=== PATIENT | male | born 1960 | race Hispanic/Latino ===

== ENCOUNTER 2022-10-24 15:51 | Emergency (ER) | payer BC ==
--- OUTSIDE RECORDS SUMMARY | 2022-10-24 15:53 | XMS REPORT | Continuity of Care Document ---
:1960 Author Organization [facility] t Address [address] [place] [address] Care Team Providers Name Role Phone JUANITO POLLOCK Attending Clinician Unavailable JUANITO POLLOCK Admitting Clinician Unavailable Payers Payer Name Policy Type Policy Number Effective Date Expiration Date Foreign lucio 100030 [id number] 1958 00:00:00 Problems Condition Condition Condition Status Onset Resolution Last Treating Co mments Source Name Details Category Date Date Treatment Clinician Date Closed Closed Problem Active [facility] distal 00:00: Aiden gloria tibia and tibia and 00 l distal distal (LUF/LI fibula fibula V/SA) LEFT ANKLE LEFT ANKLE Problem Active [facility] PAIN AND PAIN AND 4[facility]13 [facility] SWELL[facility] SWELLING 00:00: Memori a 00 l (LUF/LI V/SA) LEFT PILON LEFT PILON Problem Active [facility] FRACTURE [facility]RACTURE [facility]13 [facility] 00:[facility]: Memoria 00 l (LUF/LI V/SA) Allergies, Adverse Reactions, Alerts Allergy Allergy Status Severity Reaction(s) Onset Inactive Treating Comm ents Source Name Type Date Date Clinician No Known DA Active Unknown [facility] Drug 4[facility]13 [facility] Allergie [facility]:00: Memoria s 00 l (LUF/LI V/SA) Social History Smoking Status Start Date Stop Date Source Current every day smoker [facility] (LUF/DUNIA/SA) Medications Ordered Filled Start Stop Current Ordering Indication Dosage Frequency Signature Comments Components Source Medication Medication Date Date Medication? Clinician (SIG) Name Name Acetaminoph Acetaminoph Yes pain 2tab 6xD [facility] en 325 MG / en 325 MG / L ukes Hydrocodone Hydrocodone M emoria Bitartrate Bitartrate l 5 MG Oral 5 MG Oral (LUF/ LI Tablet Tablet V/SA) Vital Signs Vital Name Observation Time Observation Value Comments Source Height 2018-07-04 10:14:00 165.1 CM Weight 2018-07-04 10:14:00 81.64 KG Body Temperature 2018-07-04 10:14:00 97.2 F [facility] (LUF/DUNIA/SA) Pulse Rate 2018-07-04 10:14:00 80 /min [facility] (LUF/DUNIA/SA) Respiratory Rate 2018-07-04 10:14:00 20 /min [facility] (F/DUNIA/SA) O2% BldC Oximetry 2018-07-04 10:14:00 100 % [facility] (LUF/DUNIA/SA) BP Systolic 2018-07-04 10:14:00 144 mm[Hg] [facility] (LUF/DUNIA/SA) BP Diastolic 2018-07-04 10:14:00 87 mm[Hg] [facility] (LUF/DUNIA/SA) Height 2018-07-04 10:14:00 65 in [facility] (LUF/DUNIA/SA) Weight Measured 2018-07-04 10:14:00 180 lbs [facility] (LUF/DUNIA/SA) BMI (Body Mass Index) 2018-07-04 10:14:00 29.9 kg/m2 [facility] (F/DUNIA/SA) Procedures This patient has no known procedures. Encounters Start End Encounter Admission Attending Care Care Encounter Source Date/Time Date/Time Type Type Clinicians Facility Department ID 2018-07-04 2018-07-04 PLEURISY Perry DIPAK POLLOCK EMD [id number] [facility] 09:57:00 15:20:00 JUANITO mahoney (LUF/LI V/SA) Results Test Description Test Time Test Comments Results Result Comments Source STAT LAB TROPONIN 2018-07-04 14:26:00 Test Item Value Reference Range Interpretation Comme nts Troponin-I (test code = 0.00 ng/ml 0.00-0.08 The 99th Percentile URL is 0.08 TROP) ng/mL for the Tito sanonott iStat Troponin I. The Joint [place] Society of Cardiology/[facility]mer [facility] College of Cardiology (ESC /ACC) and the National Academ y of Clinical Biochemistry [facility] of Laboratory Prac tices (NACB) recommends that the diagnosis of AMI includes th e presence of clinical histor y suggestive of Acute Coronary Syndrome (ACS) and a maximum concent ration of cardiac troponin exceed ing the 99th percentile of a normal reference population [upp er reference limit (URL)] on at le ast one occasion during the firs t 24 hours after the clinical event. ed [address] [place] [address] ANGIO CHEST W/ [id number] 12:26:44 er 14Procedure: CT ANGIO CHEST W/ CONTRASTOrder date: 07/04/2018 10:57 AMOrdering Provider: JUANITO Hainical Indication: Cough and chest painComparison: NoneTechnique: Using a multislice scanner, sequential axial imaging was obtained inthe thorax from the level of the thoracic inlet through the lung bases beforeand after intravenous contrast administration. The contrast bolus was timed toevaluate the pulmonary arteries for thrombus. 3-D MIP coronal and sagittalreformatted images were obtained.This exam was performed according to the our departmental dose-optimizationprogram which includes automated exposure control, adjustment of the mA and/orkV according to patient size and/or use of iterative reconstruction techniques.Findings:The central pulmonary arteries demonstrate normal contrast enhancement. Thesecond and third order branches demonstrate normal contrast enhancement. Thereare no filling defects to suggest pulmonary artery embolism.The thoracic aorta is of normal diameter. There is no evidence of aorticdissection or aneurysm.There is no supraclavicular or axillary lymphadenopathy.There is no mediastinal, hilar, or subcarinal lymphadenopathy.Patchy amorphous groundglass nodules seen withinthe subpleural upper lobesparticularly on image 28 on the right upper lobe, image 32 in the right upperlobe, as well as image 30 in the left upper lobe. There is also subpleuralnodularity seen within the left lung base. Findings are nonspecific and arefavored to represent infectious or inflammatory infiltrates. Potentiallymetastatic disease could have this appearance and short-term three-monthfollowup is recommended.Diffuse thoracic spondylosis without acute fracture or subluxation.IMPRESSION:1. No evidence of pulmonary artery embolus.2. No evidence of aortic dissection or aneurysm.3. Nonspecific bilateral upper lobe pulmonary nodules. These are favored to beinfectious or inflammatory in etiology,however are nonspecific and three-monthfollowup are recommended.This final report was electronicallysigned by Dr Mavis Parada MD 07/04/201812:20 PMDictated By: MAVIS PARADADate: 07/04/2018 12:20[facility] ORWELLXR CHEST AP/PA 1 [id number] 12:19:29er 14Procedure: XR CHEST AP/PA 1 VIEWOrder Date: 07/04/2018 10:57 AMOrdering Provider: JUANITO HainicalIndication: [id number]: Chest painComparison: 2015Findings:Lungs are clear. Heart size is within normal limits. No acute osseousabnormality.Impression:No acute pulmonary process.This final report was electronically signed by Dr Risa Sigala MD 07/04/201812:13 PMDictated By: MILI SIGALAKDate: 07/04/201812:13[facility] OF ORWELLHEPATIC FUNCTION PANEL (LIVER)2018-07-04 11:46:00 Test Item Value Reference Range Interpretation Comments T Protein (test code = TP) 7.3 gm/dl 6.4-8.2 Albumin (test code = ALB) 3.6 gm/dl 3.4-5.0 AST (SGOT) (test code = AST) 15 U/L 15-37 ALT (SGPT) (test code = ALT) 41 U/L 13-61 Alkaline Phos (test code = ALKP) 102 U/L 45-117 Total Bilirubin (test code = TBIL) 0.5 mg/dl 0.2-1.0 Direct Bilirubin (test code = <0.1 mg/dl 0.0-0.3 N DBIL) Indirect Bilirubin (test code = 0.5 mg/dl 0.0-1.1 IBIL) er [address] [place] [address] LAB [id number] 11:41:00 Test Item Value Reference Range Interpretation Comments Troponin-I (test 0.00 ng/ml 0.00-0.08 The 99th Pe rcentile URL is code = TROP) 0.08 ng/mL for the [place] iStat Troponin I. The Joint Society of Cardiology/Amer ican College of Card iology (ESC/ACC) and t National Academy of Clin ical Biochemistry [facility] of Laboratory Prac tices (NACB) recommen ds that the diagnosis of AM I includes the presence of clinical history suggest yaneth of Acute Coronary Syndrome (ACS) and a max imum concentration o f cardiac troponin exceed ing the 99th percentile of a normal referenc e population [upp er reference limit (URL)] on at least one oc casion during the firs t 24 hours after the clini komal event. er [address] [place] [address] AND [id number] 11:40:00 Test Item Value Reference Range Interpretation Comments Protime (test code 9.7 seconds 9.0-11.9 = PT) INR (test code = 1.0 0.9-1.1 INR results are intended INR) ONLY to monitor Oral Anticoagulant t herapy in stablized patie nts. The INR Therapeutic Range is 2.0 - 3.0 Patie nts with a mechanical he art, the INR Range is 2. 5 - 3.[address] [place] [address]-[id number] 11:40:00 Test Item Value Reference Range Interpretation Comments aPTT (test code = PTT) 28.9 seconds 23.0-33.[address] [place] [address] LAB [id number] [id number] 11:36:00 Test Item Value Reference Range Interpretation Comments Sodium (test code = NA) 138 mmol/l 138-146 Potassium (test code = K) 4.0 mmol/l 3.5-4.9 Chloride (test code = CL) 105 mmol/l 98-109 IONIZED CALCIUM (test code = ICA) 1.03 CO2 (test code = CO2) 24 mmol/l 24-29 Glucose (test code = GLU) 131 mg/dl 70-105 H BUN (test code = BUN) 10 mg/dl 6-17 Creatinine (test code = CREA) 0.9 mg/dl 0.6-1.[address] [place] [address] LAB CBC WITH AUTO [id number] 11:35:00 Test Item Value Reference Range Interpretation Comments WBC (test code = WBC) 5.88 10\S\3/ul 4.80-10.80 RBC (test code = RBC) 5.51 10\S\6/ul 4.70-6.10 Hemoglobin (test code = HGB) 16.4 gm/dl 14.0-18.0 Hematocrit (test code = HCT) 46.4 % 42.0-50.0 MCV (test code = MCV) 84.2 fL 80.0-94.0 MCH (test code = MCH) 29.8 pg 27.0-31.0 MCHC (test code = MCHC) 35.3 gm/dl 33.0-37.0 Platelet (test code = PLT) 190 10\S\3/ul 130-400 RDW (test code = RDWVC) 12.3 % 11.5-14.5 MPV (test code = MPV) 10.6 fL 7.4-10.4 A NE% (test code = NE) 60.2 % 42.0-75.0 LY% (test code = LY) 27.9 % 13.0-42.0 MO% (test code = MO) 9.4 % 4.0-14.0 EO% (test code = EO) 1.9 % 1.0-3.0 BA% (test code = BA) 0.3 % 1.0-3.0 L IG% (test code = IG%) 0.3 % 0.0-0.[address] [place] [address] Notes Date/Time Note Provider Source 2018-07-04 15:20:00-00:00 [facility] Discharge Instructions 2 (LUF/LI V/SA) Discharge Diagnosis pleurisy Important Information Consult your physician or re turn to the Emergency Department immediately if worse, if not better as expected, or if any problems arise. Follow Up Care Yes Important Information Please understand that you have received care on ly on an emergency basis. If your condition does not i mprove, you should call your personal physician for follow-up care. If you do not have a physician, you may call the referred physician listed. If you have questions about your care or these discharge instructions, you may call the Emergency Department. Please take your discharge paperwork with you to any follow-up appointments. Follow Up Care Patient To Schedule Follow-Up With: Primary Care Physician Activity Level As tolerated, unrestricted Diet Regular Patient Teaching Patient education provided
[2022-10-24 16:09] LABS: Absolute Lymphocytes (CBC) 1.5 K/uL (0.7-4.9); Hematocrit 45.8 % (39.6-49.0); Lymphocytes % 20.6 % (15.3-44.8); MCV 88.7 fL (80-100); MPV 8.7 fL (7.6-11.3); Platelets 200 thou/uL (152-406); RBC Red Blood Cell Count 5.16 M/uL (4.33-5.43)
[2022-10-24 16:24] LABS: Albumin 3.2 g/dL (3.4-5.0); Bilirubin Total 0.4 mg/dL (0.2-1.0); Potassium 3.7 mEq/L (3.5-5.1); Protein, Total 6.3 g/dL (6.4-8.2)
--- NOTE | 2022-10-24 16:55 | ER ---
[facility]'s Notes [facility] Name: Say Khan Age: 62 yrs Sex: Male : 1960 Arrival Date: 10/24/2022 Time: 15:51 Bed 2 Private MD: Diagnosis: Heat exhaustion, unspecified Presentation: 10/24 15:53 Chief complaint: EMS states: patient was in a car having sexual relations without the ko1 AC on, started getting light headed, having abdominal pain and dizzy, called EMS but stayed in the car until they arrived with no AC. Upon EMS arrival patient was tachycardic and dizzy. Coronavirus screen: At this time, the client does not indicate any symptoms associated with coronavirus-19. Ebola Screen: No symptoms or risks identified at this time. Initial Sepsis Screen: Does the patient meet any 2 criteria? No. Patient's initial sepsis screen is negative. Does the patient have a suspected source of infection? No. Patient's initial sepsis screen is negative. Risk Assessment: Do you want to hurt yourself or someone else? Patient reports no desire to harm self or others. Onset of symptoms was October 24, 2022. 15:53 Method Of Arrival: EMS: [facility] ko1 15:53 Acuity: HELGA 3 ko1 15:53 Care prior to arrival: IV initiated. 18 GA, in the left forearm. ko1 Triage Assessment: 15:55 General: Appears in no apparent distress. comfortable, Behavior is calm, cooperative, ko1 appropriate for age. Pain: Denies pain. Historical: - Allergies: 15:55 No Known Allergies; ko1 - Home Meds: 15:55 None [Active]; ko1 - PMHx: 15:55 None; ko1 - Immunization history:: Adult Immunizations unknown. - Social history:: Smoking status: Patient denies any tobacco usage or history of. Screenin:00 [facility] ED Fall Risk Assessment (Adult) History of falling in the last 3 months, ko1 including since admission No falls in past 3 months (0 pts) Confusion or Disorientation No (0 pts) Intoxicated or Sedated No (0 pts) Impaired Gait No (0 pts) Mobility Assist Device Used No (0 pt) Altered Elimination No (0 pt) Score/Fall Risk Level 0 - 2 = Low Risk Oriented to surroundings, Maintained a safe environment, Educated pt \T\ family on fall prevention, incl call for assistance when getting out of bed, Assessed \T\ reinforced patient's understanding of fall precautions, Provided non-skid footwear, Hourly rounding (assess needs \T\ fall precautionary measures) done, Used ambulatory aids as needed (educated on \T\ assisted with), Used gait belt as appropriate. Abuse screen: Denies threats or abuse. Denies injuries from another. Nutritional screening: No deficits noted. Tuberculosis screening: No symptoms or risk factors identified. Assessment: 16:00 Neuro: No deficits noted. Cardiovascular: No deficits noted. Respiratory: No deficits ko1 noted. GI: No deficits noted. : No deficits noted. EENT: No deficits noted. Derm: No deficits noted. Musculoskeletal: No deficits noted. Vital Signs: 15:53 BP 146 / 77; Pulse 85; Resp 16; Temp 98.8; Pulse Ox 99% ; ko1 16:44 BP 128 / 72; Pulse 80; Resp 18; Pulse Ox 99% ; ko1 17:03 BP 132 / 74; Pulse 82; Resp 16; Pulse Ox 99% ; ko1 ED Course: 15:52 Patient arrived in ED. ko1 15:52 Sage Sigala MD is Attending Physician. sp3 15:53 Laurel Deras, JOANNE is Primary Nurse. ko1 15:55 Triage completed. ko1 15:55 Arm band placed on right wrist. Patient placed in an exam room, on a stretcher, on ko1 radiation monitor, on pulse oximetry, Patient notified of wait time. 15:57 CBC with Diff Sent. ko1 15:57 CMP Sent. ko1 15:57 CK Sent. ko1 16:00 Patient has correct armband on for positive identification. Bed in low position. Call ko1 light in reach. Side rails up X2. Provided Education on: na. Client placed on continuous cardiac and pulse oximetry monitoring. NIBP monitoring applied. monitoring manager on. Door closed. Noise minimized. 16:00 Maintain EMS IV. Dressing intact. Good blood return noted. Site clean \T\ dry. Gauge \T\ ko 1 site: 18g left FA. 17:03 No provider procedures requiring assistance completed. IV discontinued, intact, ko1 bleeding controlled, No redness/swelling at site. Pressure dressing applied. Administered Medications: 15:57 Drug: NS 0.9% IV 1000 ml Route: IV; Rate: 1 bolus; Site: left antecubital; ko1 Medication: 17:03 VIS not applicable for this client. ko1 Outcome: 16:55 Discharge ordered by . sp3 17:03 Discharged to home ambulatory. ko1 17:03 Condition: improved 17:03 Discharge instructions given to patient, Instructed on discharge instructions, follow up and referral plans. Demonstrated understanding of instructions, follow-up care. 17:21 Patient left the ED. ko1 Signatures: Sage Sigala MD MD sp3 Laurel Deras RN RN ko1 Corrections: (The following items were deleted from the chart) 15:57 15:53 Chief complaint: EMS states: patient was in a car having sexual relations without ko1 the AC on, started getting light headed and dizzy, called EMS but stayed in the car until they arrived with no AC. Upon EMS arrival patient was tachycardic and dizzy. ko1
--- NOTE | 2022-10-24 16:55 | EDPHYS ---
Physician Documentation [facility] Name: Say Khan Age: 62 yrs Sex: Male : 1960 Arrival Date: 10/24/2022 Time: 15:51 Bed 2 Private MD: ED Physician Sage Sigala HPI: 10/24 16:24 This 62 yrs old Male presents to ER via EMS with complaints of Heat exhaustion sp3 and fatigue. 16:25 62-year-old male with no significant past medical history presents by EMS for chief sp3 complaint heat exhaustion and fatigue. It was noted that patient was having sex in a air conditioned vehicle in the local [facility] parking lot when he started having the symptoms. He waited approximately 45 minutes afterwards and was not feeling better and therefore activated EMS. EMS placed patient in an air conditioned environment and administered IV fluids after which she started feeling better. Patient denies any current fever, URI symptoms, chest pain, shortness of breath, abdominal pain, vomiting or diarrhea, any other signs or symptoms on ROS at this time. He just feels generalized fatigue and dehydration.. Historical: - Allergies: 15:55 No Known Allergies; ko1 - Home Meds: 15:55 None [Active]; ko1 - PMHx: 15:55 None; ko1 - Immunization history:: Adult Immunizations unknown. - Social history:: Smoking status: Patient denies any tobacco usage or history of. ROS: 16:26 Constitutional: Negative for fever, chills, and weight loss, Eyes: Negative for injury, sp3 pain, redness, and discharge, Neck: Negative for injury, pain, and swelling, Cardiovascular: Negative for chest pain, palpitations, and edema, Respiratory: Negative for shortness of breath, cough, wheezing, and pleuritic chest pain, Abdomen/GI: Negative for abdominal pain, nausea, vomiting, diarrhea, and constipation, Back: Negative for injury and pain, MS/Extremity: Negative for injury and deformity, Skin: Negative for injury, rash, and discoloration, Psych: Negative for depression, anxiety, suicide ideation, homicidal ideation, and hallucinations. 16:26 All other systems are negative. Exam: 16:27 Constitutional: This is a well developed, well nourished patient who is awake, alert, sp3 and in no acute distress. Head/Face: Normocephalic, atraumatic. Eyes: Pupils equal round and reactive to light, extra-ocular motions intact. Lids and lashes normal. Conjunctiva and sclera are non-icteric and not injected. Cornea within normal limits. Periorbital areas with no swelling, redness, or edema. ENT: Nares patent. No nasal discharge, no septal abnormalities noted. External auditory canals are clear. Oropharynx with no redness, swelling, or masses, exudates, or evidence of obstruction, uvula midline. Mucous membranes moist. Neck: Trachea midline, no thyromegaly or masses palpated, and no cervical lymphadenopathy. Supple, full range of motion without nuchal rigidity, or vertebral point tenderness. No Meningismus. Chest/axilla: Normal chest wall appearance and motion. Nontender with no deformity. No lesions are appreciated. Cardiovascular: Regular rate and rhythm with a normal S1 and S2. No gallops, murmurs, or rubs. Normal PMI, no JVD. No pulse deficits. Respiratory: Lungs have equal breath sounds bilaterally, clear to auscultation and percussion. No rales, rhonchi or wheezes noted. No increased work of breathing, no retractions or nasal flaring. Abdomen/GI: Soft, non-tender, with normal bowel sounds. No distension or tympany. No guarding or rebound. No evidence of tenderness throughout. Back: No spinal tenderness. No costovertebral tenderness. Full range of motion. Skin: Warm, dry with normal turgor. Normal color with no rashes, no lesions, and no evidence of cellulitis. MS/ Extremity: Pulses equal, no cyanosis. Neurovascular intact. Full, normal range of motion. Neuro: Awake and alert, GCS 15, oriented to person, place, time, and situation. Cranial nerves II-XII grossly intact. Motor strength 5/5 in all extremities. Sensory grossly intact. Cerebellar exam normal. Normal gait. Psych: Awake, alert, with orientation to person, place and time. Behavior, mood, and affect are within normal limits. Vital Signs: 15:53 BP 146 / 77; Pulse 85; Resp 16; Temp 98.8; Pulse Ox 99% ; ko1 16:44 BP 128 / 72; Pulse 80; Resp 18; Pulse Ox 99% ; ko1 17:03 BP 132 / 74; Pulse 82; Resp 16; Pulse Ox 99% ; ko1 MDM: 15:53 Patient medically screened. sp3 16:27 Data reviewed: vital signs, nurses notes. ED course: 62-year-old male with heat sp3 exhaustion after being in an environment without air conditioning while having sex. Patient is now symptom-free after being back in air conditioning and receiving IV fluids. He has received further IV fluids here in the ED and feels like he is ready for discharge. I have advised him to stay and get labs checked to ensure no other abnormalities are present we will discharge him after that.. 16:54 ED course: Patient stable and we will discharge home at this time.. sp3 10/24 15:54 Order name: CBC with Diff; Complete Time: 16: sp3 10/24 15:54 Order name: CMP; Complete Time: 16: sp3 10/24 15:54 Order name: CK; Complete Time: 16: sp3 10/24 15:54 Order name: IV Saline Lock; Complete Time: 15:57 sp3 10/24 15:54 Order name: Labs collected and sent; Complete Time: 15:57 sp3 Administered Medications: 15:57 Drug: NS 0.9% IV 1000 ml Route: IV; Rate: 1 bolus; Site: left antecubital; ko1 Disposition Summary: 10/24/22 16:55 Discharge Ordered Location: Home sp3 Condition: Stable sp3 Diagnosis - Heat exhaustion, unspecified sp3 Followup: sp3 - With: Private Physician - When: Upon discharge from the Emergency Department - Reason: Continuance of care Discharge Instructions: - Discharge Summary Sheet sp3 - Preventing Heat Exhaustion, Adult sp3 Forms: - Medication Reconciliation Form sp3 - Thank You Letter sp3 - Antibiotic Education sp3 - Prescription Opioid Use sp3 - Patient Portal Instructions sp3 - Leadership Thank You Letter sp3 Signatures: Dispatcher [employer] EDMS Sage Sigala MD MD sp3 Laurel Deras RN RN ko1 Corrections: (The following items were deleted from the chart) 16 16:27 Data reviewed: vital signs, nurses notes, sp3 sp3 16: 16:27 ED course: 62-year-old male with heat exhaustion after being in an environment sp3 without air conditioning. sp3
[2022-10-24 17:26] VITALS: TEMP 98.8; O2SAT 99
[2022-10-24 17:29] VITALS: BP 132/74
== END 2022-10-24 17:21 | disposition home or self-care (01) ==
LOC: ER 15:51
DX: T67.5XXA Heat exhaustion, unspecified, initial encounter (principal)
CPT/HCPCS: 36415; 80053; 82550; 85025; 99285